=== PATIENT | female | born 1980 | race African-American/Black ===

== ENCOUNTER → 2019-12-22 | Outpatient (CLI) | payer MEDICAID | END | disposition home or self-care (01) | LOC: LAB 11:49 | PROVIDERS: ATTEND Obstetrics & Gynecology | DX: Z01.812 Encounter for preprocedural laboratory examination (principal); Z20.828 Contact with and (suspected) exposure to other viral communicable diseases | CPT/HCPCS: C9803; U0003 ==

== ENCOUNTER 2019-12-25 07:06 | Day surgery (SDC) | payer MEDICAID ==
[~2019-12-25] VITALS: Ht 170.2 cm; Wt 104.3 kg
[~2019-12-25 07:06] MED LIST: LACTATED RINGERS 1,000 ML IV SCH
[2019-12-25 07:37] LABS: CLARITY URINE CLOUDY (CLEAR); COLOR URINE YELLOW (YELLOW); KETONES URINE NEGATIVE (NEGATIVE); LEUKOCYTE ESTERASE URINE NEGATIVE (NEGATIVE); NITRITE URINE NEGATIVE (NEGATIVE); OCCULT BLOOD URINE 3+ (NEGATIVE); PROTEIN URINE NEGATIVE (NEGATIVE); SPECIFIC GRAVITY URINE 1.026 (1.005-1.030); UROBILINOGEN URINE 0.2 E.U./dL (0.2-1.0)
[2019-12-25 07:38] LABS: UCG SCREEN NEGATIVE
[2019-12-25 07:54] LABS: BASOPHILS % 0.9 % (0.0-2.0); EOSINOPHILS % 2.7 % (0.0-5.0); HEMATOCRIT. 37.9 % (36.0-48.0); HEMOGLOBIN. 12.8 g/dL (12.0-16.0); LYMPHOCYTES % 34.3 % (20.0-50.0); MEAN CORPUSCULAR VOLUME 92.2 fL (81.0-99.0); MEAN PLATELET VOLUME 9.5 fl (7.4-10.4); MONOCYTES % 6.6 % (2.0-8.0); NEUTROPHILS % 55.5 % (40.0-76.0); PLATELET 340 x1000/uL (130-400); RED BLOOD CELL COUNT 4.11 mill/uL (4.2-5.4); RED CELL DISTRIBUTION WIDTH 14.7 % (11.6-14.6)
[2019-12-25 07:57] LABS: CHLORIDE 104 mEq/L (98-107)
[2019-12-25 08:05] LABS: PARTIAL THROMBOPLASTIN TIME 30.4 sec (23.4-31.0); PROTHROMBIN TIME 10.9 sec (9.6-11.0)
[2019-12-25] MEDS ORDERED: SKIN ADHESIVE 0.7 GM EA TOP ONE (08:49)
[2019-12-25] MEDS ORDERED: BUPIVACAINE HCL/PF 0.5% (5MG/ML) 10ML ONE (08:50)
[2019-12-25] MEDS ORDERED: VASOPRESSIN 20 UNIT/ML 1ML ONE (08:50)
[2019-12-25] MEDS ORDERED: ROCURONIUM BROMIDE 10MG/ML VIAL 5ML IV ONE (11:08)
[2019-12-25] MEDS ORDERED: PROPOFOL 200MG/20ML VIAL IV ONE (11:09)
[2019-12-25] MEDS ORDERED: HYDROMORPHONE HCL/PF 2MG/ML (OR) ONE (11:20)
[2019-12-25] MEDS ORDERED: GLYCOPYRROLATE 0.2 MG/ML 2ML VIAL ONE ×2 (12:12→12:33)
[2019-12-25] MEDS ORDERED: NEOSTIGMINE METHYLSULFATE 1MG/ML 10 ML VIAL ONE ×2 (12:12→12:33)
[2019-12-25] MEDS ORDERED: METOCLOPRAMIDE HCL 10MG/2ML VIAL ONE (12:14)
[2019-12-25] MEDS ORDERED: ONDANSETRON HCL 4MG/2ML INJ ONE (12:14)
[2019-12-25] MEDS ORDERED: LABETALOL 5MG/ML SYR 20 MG/4 ML SYRINGE IV PRN (13:15)
[2019-12-25] MEDS ORDERED: HYDROMORPHONE HCL/PF 2MG/ML CPJ IV PRN (13:15)
[2019-12-25] MEDS ORDERED: MEPERIDINE HCL/PF 25MG/ML CPJ IV PRN (13:15)
[2019-12-25] MEDS ORDERED: ONDANSETRON HCL 4MG/2ML INJ IV PRN (13:15)
== END 2019-12-25 15:15 | disposition home or self-care (01) ==
LOC: OR 07:06
PROVIDERS: ATTEND Obstetrics & Gynecology
DX: D25.9 Leiomyoma of uterus, unspecified (principal); Z79.899 Other long term (current) drug therapy; Z98.890 Other specified postprocedural states; Z88.8 Allergy status to other drugs, medicaments and biological substances
CPT/HCPCS: 36415; 58545; 80048; 81003; 81025; 85025; 85610; 85730; 86850; 86900; 86901; J1170; J2405; J2704; J2710; J2765; J3490